=== PATIENT | female | born 1935 | race Caucasian/White ===

== ENCOUNTER 2019-09-19 18:58 | Emergency (ER) | payer OTHER ==
[~2019-09-19] VITALS: Ht 162.6 cm; Wt 90.7 kg
[~2019-09-19 18:58] MED LIST: ALEVE220 M1 PO; BACTRIM DS TAB1 EACH; DYAZIDE 37.5-21 EACH PO; FISH OIL 1,001000 M2 PO; MULTIVITAMINS1 EAC7 PO; NORVASC5 MG PO; PHENERGAN 25 MG25 M1 PO; POTASSIUM20 PO; TUMS PO; ZOFRAN ODT4 MG PO
[2019-09-19] MEDS ORDERED: NORVASC 2.5 MG2.5 M1 PO (19:12)
[2019-09-19 20:22] LABS: CALCIUM 9.9 mg/dL (8.5-10.1); CREATININE 1.3 mg/dL (0.6-1.0); POTASSIUM 4.4 mmol/L (3.5-5.1)
[2019-09-19 20:27] LABS: ALBUMIN 3.7 g/dL (3.4-5.0); TOTAL BILIRUBIN 0.5 mg/dL (<0.1-1.0); TOTAL PROTEIN 7.8 g/dL (6.4-8.2)
[2019-09-19 20:45] LABS: ABSOLUTE NEUTROPHILS 11.4 thou/uL (1.4-8.2); BASOPHILS 0.2 % (0.0-2.0); EOSINOPHILS 0.1 % (0.0-3.0); HEMATOCRIT 41.3 % (37.0-47.0); HEMOGLOBIN 13.3 gm/dL (12.0-15.0); MCH 27.1 pg (26.0-34.0); MCHC 32.1 g/dL (28.0-37.0); MCV 84.5 fL (80.0-100.0); MONOCYTES 4.3 % (1.0-8.0); PLATELET COUNT 270 thou/uL (150-400); POLYS 87.4 % (36.0-66.0); RBC 4.89 mil/uL (4.20-5.00); RDW 14.1 % (10.5-14.5)
[2019-09-19] MEDS ORDERED: ONDANSETRON HCL4 M2 PO (22:17)
[2019-09-19] MEDS ORDERED: LIDOCAINE PAIN1 EACH TRANSDERM (22:17)
[2019-09-19] MEDS ORDERED: NORCO 5-325 TA1 EAC1 PO (22:17)
[2019-09-19 22:36] VITALS: BP 140/66
== END 2019-09-19 22:37 | disposition home or self-care (01) ==
LOC: ER 18:58
PROVIDERS: Physician Assistant
DX: M54.5 Low back pain (principal); M25.551 Pain in right hip; I10 Essential (primary) hypertension; W10.8XXA Fall (on) (from) other stairs and steps, initial encounter; Y93.89 Activity, other specified; Y92.89 Other specified places as the place of occurrence of the external cause; Y99.8 Other external cause status